=== PATIENT | male | born 1975 | race Two or more races ===

== ENCOUNTER → 2018-11-25 | Emergency (ER) | payer OTHER ==
[~2018-11-25] VITALS: Ht 172.7 cm; Wt 81.6 kg
[~2018-11-25] MED LIST: IBUPROFEN600 MG ORAL; LIDODERM700 M1 TOPIC; Methocarbamol 750mg tab ORAL ONE; ROBAXIN-750750 MG PO
[2018-11-25 18:38] VITALS: BP 138/72
--- NOTE | 2018-11-25 18:48 | NUR ---
ED Nurse Note:pt. injured his lower back at work 3 days ago and c/o pain
--- NOTE | 2018-11-25 19:15 | Emergency Room Report ---
History of Present Illness General Chief Complaint: Lower Back Pain or Injury Source: Patient Present Illness HPI 43-year-old male presents to the emergency department complaining of 9 out of 10 severity low back pain without radiation x3 days. Patient reports acute onset while bending over to pick something up at work. Patient states that his pain initially was intermittent however it is become more progressive over the last few days while he was at work. Patient states that he had to leave work yesterday because it was causing too much pain. Patient denies trauma or fall. Patient denies previous injury to the back. Patient denies fevers, chills, abdominal pain, neck pain or stiffness. Patient denies recent spinal procedures or history of neoplastic disease. Denies numbness tingling or loss of sensation or gross motor movements of the extremities, incontinence of bowel or bladder. Denies CP, Palpitations, LOC, AMS, dizziness, Changes in Vision, weakness or a sudden severe headache. Allergies: Coded Allergies: No Known Allergies (Unverified , 11/25/18) Patient History Past Medical History: see triage record Past Surgical History: none Pertinent Family History: none Reviewed Nursing Documentation: PMH: Agreed; PSxH: Agreed Nursing Documentation-PMH Past Medical History: No Stated History Review of Systems All Other Systems: negative except mentioned in HPI Physical Exam Vital Signs Date Time Temp Pulse Resp B/P (MAP) Pulse Ox O2 Delivery O2 Flow Rate FiO2 11/25/18 18:38 98.1 90 16 138/72 (94) 99 Room Air Sp02 EP Interpretation: reviewed, normal General Appearance: no apparent distress, alert, GCS 15, non-toxic Head: normocephalic, atraumatic Eyes: bilateral eye normal inspection, bilateral eye PERRL ENT: hearing grossly normal, normal voice Neck: full range of motion Respiratory: lungs clear, normal breath sounds, speaking full sentences Cardiovascular #1: regular rate, rhythm Gastrointestinal: non tender, soft Genitourinary: normal inspection, no CVA tenderness Musculoskeletal: back normal, gait/station normal, normal range of motion, tender - FROM is with pain upon full forward flexion. Pt. able to tolerate leg raise. Mild Tenderness to palpation to paraspinal muscles of the lower back with some mild midline tenderness. Neurologic: alert, oriented x3, responsive, motor strength/tone normal, sensory intact, normal gait, speech normal, grossly normal Psychiatric: judgement/insight normal Medical Decision Making PA Attestation Dr. Rai Is my supervising Physician whom patient management has been discussed with. Diagnostic Impression: Primary Impression: Lumbosacral strain Qualified Codes: S39.012A - Strain of muscle, fascia and tendon of lower back , initial encounter Additional Impression: Back pain Qualified Codes: M54.5 - Low back pain ER Course 43-year-old male presents to the emergency department complaining of 9 out of 10 severity low back pain without radiation x3 days. Patient reports acute onset while bending over to pick something up at work. Patient states that his pain initially was intermittent however it is become more progressive over the last few days while he was at work. Patient states that he had to leave work yesterday because it was causing too much pain. Patient denies trauma or fall. Patient denies previous injury to the back. Patient denies fevers, chills, abdominal pain, neck pain or stiffness. Patient denies recent spinal procedures or history of neoplastic disease. Denies numbness tingling or loss of sensation or gross motor movements of the extremities, incontinence of bowel or bladder. Denies CP, Palpitations, LOC, AMS, dizziness, Changes in Vision, weakness or a sudden severe headache. Ddx considered: epidural abscess, fracture, sprain/strain, meningitis, spinal chord injury, sciatica, cauda equina, Pyelonephritis, renal calculi just to name a few. Vital signs reviewed and are WNL during ED visit. Pt. is afebrile with no signs of infection No new symptoms, and denies recent trauma. No saddle anesthesia noted, Pt. denies incontinence Neurovascular is intact FROM is with pain upon full forward flexion. Pt. able to tolerate leg raise. Mild Tenderness to palpation to paraspinal muscles of the lower back with some mild midline tenderness. Pt. describes pain today as moderate and radiates across the lower back. ORDERS: none warranted at this time. INTERVENTIONS: - Lidoderm TP -Robaxin PO -Motrin PO -I do not identify an emergent condition at this time. With current presentation , pt. is stable for close outpatient follow up and conservative treatment. D/ w pt. to return promptly to ED with worsening or new symptoms.- Pt. verbalizes' understanding and agreement with proposed treatment plan. D/W Pt. that for further pain management is it recommended to consult PCP or a Chronic Pain management doctor. A provider who can safely prescribe controlled substances with close follow up. DISCHARGE: At this time pt. is stable for d/c to home. Will provide printed patient care instructions, and any necessary prescriptions. Care plan and follow up instructions have been discussed with the patient prior to discharge. Last Vital Signs Date Time Temp Pulse Resp B/P (MAP) Pulse Ox O2 Delivery O2 Flow Rate FiO2 11/25/18 18:38 98.1 90 16 138/72 (94) 99 Room Air Disposition: HOME, SELF-CARE Condition: Stable Departure Forms: Return to Work Return to Work Date: Nov 29, 2018 Work Restrictions: No Heavy Lifting, No Prolonged Standing Other Restrictions: light duty, limited bending. May return Sooner if Symptoms have resolved. Return to Full Activity: Dec 06, 2018 Patient Instructions: Lumbosacral Strain, Back Pain, Adult Additional Instructions: Take medications as directed. Do not drink alcohol, drive, or operate heavy machinery while taking Robaxin ( Muscle Relaxers) as this may cause drowsiness. Follow up with a Primary Care Provider in 3-5 days, even if your symptoms have resolved. May require an MRI or Physical Therapy at the discretion of your primary care provider if your symptoms persist beyond conservative treatment with muscle relaxers and anti-inflammatory medication in addition to rest. Return sooner to ED if new symptoms occur, or current symptoms become worse. - Please note that this Emergency Department Report was dictated using [employer] guard technology software, occasionally this can lead to erroneous entry secondary to interpretation by the dictation equipment. Deysi Ritter Nov 25, 2018 19:15
[2018-11-25 19:16] VITALS: BP 138/72
--- NOTE | 2018-11-25 19:16 | NUR ---
ED Nurse Note: Recieved report from Alicia UNDERWOOD. Pt alert, oriented, verbally responisve. No SOB. C/o lower back pain.
--- NOTE | 2018-11-25 19:27 | NUR ---
ED Nurse Note: Pt cleared by ERMD for discharge. DC instructions/prescription was given and explained to pt and verbalized understanding of teachings. All medical devices such as ID band removed. Pt is AAO x4, ambulatory and left with all personal belongings.
== END | disposition home or self-care (01) ==
LOC: EMR 19:43
DX: S39.012A Strain of muscle, fascia and tendon of lower back, initial encounter (principal); X50.1XXA Overexertion from prolonged static or awkward postures, initial encounter; Y92.511 Restaurant or cafe as the place of occurrence of the external cause; Y99.0 Civilian activity done for income or pay
CPT/HCPCS: 99283